=== PATIENT | male | born 1985 | race Two or more races ===

== ENCOUNTER 2018-04-26 06:06 | Emergency (ER) | payer SELFPAY ==
[2018-04-26] MEDS ORDERED: HYDROmorphONE/DILAUDID 2 MG/ML INJ IVP ONE ×2 (06:17→07:00)
[2018-04-26] MEDS ORDERED: NS 1,000 ML IV ONE ×2 (06:17→07:02)
[2018-04-26] MEDS ORDERED: ONDANSETRON 4 MG/2 ML VIAL IVP ONE (06:17)
--- NOTE | 2018-04-26 06:20 | EDPHY ---
H & P Stated Complaint: abd pain Source: Patient - Personal History Current Tetanus Diphtheria and Acellular Pertussis (TDAP): Unsure - Medical/Surgical History Hx Asthma: No Hx Chronic Respiratory Disease: No Hx Diabetes: No Hx Cardiac Disease: No Hx Renal Disease: No Hx Cirrhosis: No Hx Alcoholism: No Hx HIV/AIDS: No Hx Splenectomy or Spleen Trauma: No - Social History Smoking Status: Never smoked Time Seen by Provider: 04/26/18 06:17 HPI/ROS: HPI CHIEF COMPLAINT: Abdominal pain HISTORY OF PRESENT ILLNESS: 32-year-old male, otherwise healthy denies any significant medical history, presents emergency room with abdominal pain. Patient states approximately 15 min ago this woke him from sleep this describes sharp and dull pain around his periumbilical region. He denies any flank pain or back pain. Denies testicular pain, denies urinary symptoms. No vomiting did have nausea. No diarrhea. Patient states that he ate pasta last night. No fever. Has not been sick recently Current level pain 8/[address] He drove immediately here from his residence. He states the pain started 15-20 minutes ago. Sudden onset woke him from sleep. Of note upon arrival to the emergency room is noted he is hyperventilating, and appears very anxious. Past Medical History: Denies medical history Past Surgical History: Denies any surgical history Social History: Denies drugs alcohol tobacco. 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 Family History: Denies significant family history ROS REVIEW OF SYSTEMS: 10 Systems were reviewed and negative with the exception of the elements mentioned in the history of present illness. Exam Constitutional anxious triage nursing summary reviewed, vital signs reviewed, awake/alert. Hyperventilating. Eyes normal conjunctivae and sclera, EOMI, PERRLA. HENT normal inspection, atraumatic, moist mucus membranes, no epistaxis, neck supple/ no meningismus, no raccoon eyes. Respiratory hyperventilating clear to auscultation bilaterally, normal breath sounds, no respiratory distress, no wheezing. Cardiovascular rate normal, regular rhythm, no murmur, no edema, distal pulses normal. Gastrointestinal mild tender palpation periumbilical, no peritoneal signs, no rebound, no guarding, normal bowel sounds, no distension, no pulsatile mass. Genitourinary no CVA tenderness. Musculoskeletal no midline vertebral tenderness, full range of motion, no calf swelling, no tenderness of extremities, no meningismus, good pulses, neurovascularly intact. Skin pink, warm, & dry, no rash, skin atraumatic. Neurologic awake, alert and oriented x 3, AAOx3, moves all 4 extremities equally, motor intact, sensory intact, CN II-XII intact, normal cerebellar, normal vision, normal speech. Psychiatric normal mood/affect. Heme/Lymph/Immune no lymphadenopathy. Differential diagnosis includes but is not limited to and in no particular order : Bowel obstruction, appendicitis, gallbladder disease, diverticulitis, colitis , enteritis, perforated viscus, gastritis, GERD, esophagitis, urinary tract infection, pyelonephritis, kidney stones Medical Decision Making: Plan for this patient IV establishment IV fluid bolus , 0.5 mg IV Dilaudid for pain control 4 mg IV Zofran for nausea, basic labs, urinalysis, CT scan abdomen pelvis with IV contrast rule out for acute appendicitis versus kidney stone. Re-evaluation: 0637: Patient is hyperventilating. Tachypneic in the 30s. States his hands and fingers are tingling. 1 mg IV Ativan ordered. 0700: Patient is still writhing in pain. Patient still hyperventilating and having significant abdominal pain on exam. He is back from CT scan. His vital signs are stable however tachypnea due to anxiety and hyperventilating. Patient complaining of severe periumbilical abdominal pain. CT scan reviewed by myself still waiting on the radiologist call this appears to have right-sided hydronephrosis, and distal right-sided kidney stone. I have ordered the patient a mg of Dilaudid Additionally 15 mg IV Toradol his creatinine is normal. He is getting IV fluids. 0702: CT scan abdomen pelvis with IV contrast for acute severe abdominal pain shows right-sided hydroureter, right-sided distal ureteral stone 5 x 5 x 3. It is noted upon arrival the patient had elevated lactic close to 5. The patient is not septic lactic acid is elevated due to dehydration, anxiety, kidney stone. No evidence of end-organ damage. He is not septic no fever, he is not hypotensive. Plan for this patient 2 L of fluid, Pain control Once his pain is controlled I believe he can be safely discharged from the emergency room to follow up with Urology. (Sumeet Asif) Constitutional: Initial Vital Signs Heart Rate 105 H 12/16/18 06:09 Respiratory Rate 28 H 04/26/18 06:09 Blood Pressure 149/88 H 04/26/18 06:09 O2 Sat (%) 99 04/26/18 06:09 O2 Delivery Mode Nasal Cannula O2 (L/minute) 1 Allergies/Adverse Reactions: No Known Allergies Allergy (Unverified 04/26/18 06:08) Home Medications: Medication Instructions Recorded Hydrocodone/APAP 5/325 [[place] 1 - 2 tab PO Q4H PRN #10 tab 04/26/18 5/325] Ondansetron HCl [Zofran] 4 mg PO Q4-6PRN PRN #10 tablet 04/26/18 Tamsulosin HCl [Flomax] 0.4 mg PO DAILY #10 cap 04/26/18 Medical Decision Making ED Course/Re-evaluation: I assumed care of the patient at 0700. I re-evaluated the patient at 10:00 a.m.. He has received several L of fluid. He is currently feeling much better. Curiously his initial lactic acid was quite high however his come down. The patient is not sick nor does he have septic physiology. There is no evidence of a infection noted on his urinalysis. The patient will be discharged home with customary aftercare instructions and return precautions. He is given follow up with Urology per Dr. Asif's instructions. (Danish Burton) - Data Points Laboratory Results: Laboratory Results 04/26/18 05:42 04/26/18 05:42 04/26/18 04/26/18 04/26/18 09:39 08:08 06:30 WBC RBC Hgb POC Hgb 16.0 gm/dL gm/dL (13.7-17.5) Hct POC Hct 47 % % (40-51) MCV MCH MCHC RDW Plt Count MPV Neut % (Auto) Lymph % (Auto) [place] % (Auto) Eos % (Auto) Baso % (Auto) Nucleat RBC Rel Count Absolute Neuts (auto) Absolute Lymphs (auto) Absolute Monos (auto) Absolute Eos (auto) Absolute Basos (auto) Absolute Nucleated RBC Immature Gran % Seg Neutrophils % Band Neutrophils % Lymphocytes % Monocytes % Eosinophils % Basophils % Metamyelocytes % Myelocytes % Promyelocytes % Blast Cells % Immature Gran # Absolute Seg Neuts Absolute Band Neuts Absolute Lymphocytes Absolute Monocytes Absolute Eosinophils Absolute Basophils Absolute Metamyelocyte Absolute Myelocytes Absolute Promyelocytes Absolute Plasma Cells RBC/WBC/PLT Morphology Atypical Lymphocytes Absolute Blast Cells Plasma Cells % Platelet Estimate Smear Review By VBG Lactic Acid 2.3 mmol/L H mmol/L (0.7-2.1) POC Sodium 144 mEq/L mEq/L (135-145) Sodium POC Potassium 3.3 mEq/L mEq/L (3.3-5.0) Potassium POC Chloride 102 mEq/L mEq/L (97-110) Chloride Carbon Dioxide Anion Gap POC BUN 16 mg/dL mg/dL (7-23) BUN Creatinine POC Creatinine 0.9 mg/dL mg/dL (0.7-1.3) Estimated GFR Glucose POC Glucose 108 mg/dL H mg/dL (70-100) Calcium Total Bilirubin Conjugated Bilirubin Unconjugated Bilirubin AST ALT Alkaline Phosphatase Total Protein Albumin Lipase Urine Color YELLOW Urine Appearance HAZY Urine pH 5.0 (5.0-7.5) Ur Specific [place] > 1.035 H (1.002-1.030) Urine Protein NEGATIVE (NEGATIVE) Urine Ketones TRACE H (NEGATIVE) Urine Blood 3+ H (NEGATIVE) Urine Nitrate NEGATIVE (NEGATIVE) Urine Bilirubin NEGATIVE (NEGATIVE) Urine Urobilinogen NEGATIVE EU EU (0.2-1.0) Ur Leukocyte Esterase NEGATIVE (NEGATIVE) Urine RBC 50-182 /hpf H /hpf (0-3) Urine WBC 1-3 /hpf /hpf (0-3) Ur Epithelial Cells NONE SEEN /lpf /lpf (NONE-1+) Urine Mucus 1+ /lpf /lpf (NONE-1+) Urine Glucose NEGATIVE (NEGATIVE) 04/26/18 04/26/18 04/26/18 05:42 05:42 05:42 WBC 14.09 10^3/uL H 10^3/uL (3.80-9.50) RBC 5.32 10^6/uL 10^6/uL (4.40-6.38) Hgb 16.1 g/dL g/dL (13.7-17.5) POC Hgb Hct 45.3 % % (40.0-51.0) POC Hct MCV 85.2 fL fL (81.5-99.8) MCH 30.3 pg pg (27.9-34.1) MCHC 35.5 g/dL g/dL (32.4-36.7) RDW 12.7 % % (11.5-15.2) Plt Count 322 10^3/uL 10^3/uL (150-400) MPV 9.3 fL fL (8.7-11.7) Neut % (Auto) Not Reported Lymph % (Auto) Not Reported [place] % (Auto) Not Reported Eos % (Auto) Not Reported Baso % (Auto) Not Reported Nucleat RBC Rel Count Not Reported Absolute Neuts (auto) Not Reported Absolute Lymphs (auto) Not Reported Absolute Monos (auto) Not Reported Absolute Eos (auto) Not Reported Absolute Basos (auto) Not Reported Absolute Nucleated RBC Not Reported Immature Gran % Not Reported Seg Neutrophils % 29.0 % % Band Neutrophils % 0.0 % % Lymphocytes % 64.0 % % Monocytes % 5.0 % % Eosinophils % 2.0 % % Basophils % 0.0 % % Metamyelocytes % 0.0 % % Myelocytes % 0.0 % % Promyelocytes % 0.0 % % Blast Cells % 0.0 % % Immature Gran # Not Reported Absolute Seg Neuts 0.00 10^3/uL L 10^3/uL (1.70-6.50) Absolute Band Neuts 0.00 10^3/uL 10^3/uL (0.00-0.70) Absolute Lymphocytes 0.00 10^3/uL L 10^3/uL (1.00-3.00) Absolute Monocytes 0.00 10^3/uL L 10^3/uL (0.30-0.80) Absolute Eosinophils 0.00 10^3/uL L 10^3/uL (0.03-0.40) Absolute Basophils 0.00 10^3/uL L 10^3/uL (0.02-0.10) Absolute Metamyelocyte 0.00 10^3/mL 10^3/mL (0.00-0.00) Absolute Myelocytes 0.00 10^3/mL 10^3/mL (0.00-0.00) Absolute Promyelocytes 0.00 10^3/uL 10^3/uL (0.00-0.00) Absolute Plasma Cells 0.00 10^3/uL 10^3/uL (0.00-0.00) RBC/WBC/PLT Morphology NORMAL (NORMAL) Atypical Lymphocytes 1+ H Absolute Blast Cells 0.00 10^3/uL 10^3/uL (0.00-0.00) Plasma Cells % 0.0 % % Platelet Estimate ADEQUATE (ADEQ) Smear Review By Darling MCGINNIS MD VBG Lactic Acid 5.3 mmol/L H mmol/L (0.7-2.1) POC Sodium Sodium 141 mEq/L mEq/L (135-145) POC Potassium Potassium 3.8 mEq/L mEq/L (3.5-5.2) POC Chloride Chloride 106 mEq/L mEq/L (97-110) Carbon Dioxide 19 mEq/l L mEq/l (22-31) Anion Gap 16 mEq/L H mEq/L (6-14) POC BUN BUN 17 mg/dL mg/dL (7-23) Creatinine 0.9 mg/dL mg/dL (0.7-1.3) POC Creatinine Estimated GFR > 60 Glucose 106 mg/dL H mg/dL (70-100) POC Glucose Calcium 9.6 mg/dL mg/dL (8.5-10.4) Total Bilirubin 1.0 mg/dL mg/dL (0.1-1.4) Conjugated Bilirubin 0.2 mg/dL mg/dL (0.0-0.5) Unconjugated Bilirubin 0.8 mg/dL mg/dL (0.0-1.1) AST 38 IU/L IU/L (17-59) ALT 82 IU/L H IU/L (21-72) Alkaline Phosphatase 87 IU/L IU/L (38-126) Total Protein 7.4 g/dL g/dL (6.3-8.2) Albumin 4.5 g/dL g/dL (3.5-5.0) Lipase 123 IU/L IU/L (23-300) Urine Color Urine Appearance Urine pH Ur Specific [place] Urine Protein Urine Ketones Urine Blood Urine Nitrate Urine Bilirubin Urine Urobilinogen Ur Leukocyte Esterase Urine RBC Urine WBC Ur Epithelial Cells Urine Mucus Urine Glucose Medications Given: Discontinued Medications Hydromorphone HCl (Dilaudid) 0.5 mg IVP EDNOW ONE Stop: 04/26/18 06:18 Last Admin: 04/26/18 06:29 Dose: 0.5 mg Hydromorphone HCl (Dilaudid) 1 mg IVP EDNOW ONE Stop: 04/26/18 07:01 Last Admin: 04/26/18 07:01 Dose: 1 mg Sodium Chloride (Ns) 1,000 mls @ 0 mls/hr IV EDNOW ONE; Wide Open PRN Reason: Protocol Stop: 04/26/18 06:18 Last Admin: 04/26/18 06:26 Dose: 1,000 mls Sodium Chloride (Ns) 1,000 mls @ 0 mls/hr IV ONCE ONE PRN Reason: Wide Open Stop: 04/26/18 07:03 Last Admin: 04/26/18 07:04 Dose: 1,000 mls Ketorolac Tromethamine (Toradol) 15 mg IVP EDNOW ONE Stop: 04/26/18 07:01 Last Admin: 04/26/18 07:02 Dose: 15 mg Lorazepam (Ativan Injection) 1 mg IVP EDNOW ONE Stop: 04/26/18 06:38 Last Admin: 04/26/18 06:39 Dose: 1 mg Ondansetron HCl (Zofran) 4 mg IVP EDNOW ONE Stop: 04/26/18 06:18 Last Admin: 04/26/18 06:30 Dose: 4 mg Point of Care Test Results: Chemistry 04/26/18 06:30 POC Sodium 144 mEq/L mEq/L (135-145) POC Potassium 3.3 mEq/L mEq/L (3.3-5.0) POC Chloride 102 mEq/L mEq/L (97-110) POC BUN 16 mg/dL mg/dL (7-23) POC Creatinine 0.9 mg/dL mg/dL (0.7-1.3) POC Glucose 108 mg/dL H mg/dL (70-100) ISTAT H&H 04/26/18 06:30 POC Hgb 16.0 gm/dL gm/dL (13.7-17.5) POC Hct 47 % % (40-51) Departure - Departure Disposition: Home, Routine, Self-Care Clinical Impression: Kidney stone on right side Abdominal pain Qualifiers: Abdominal location: unspecified location Qualified Code(s): R10.9 - Unspecified abdominal pain Condition: Good Instructions: Kidney Stones (ED), Renal Colic (ED), Acute Abdominal Pain (ED) Additional Instructions: 1. Return to the emergency room if you have worsening abdominal pain, vomiting, not doing well 2. You have a kidney stone seen on her CT scan it is on the right side is almost in your bladder 3. Please drink lots of fluids 4. Flomax as prescribed 5. Follow up with Urology 6. Strain her urine 7. Return if severe pain vomiting or not doing well. Referrals: NONE *PRIMARY CARE P,. [Primary Care Provider] - As per Instructions Crescencio Martinez MD [Medical Doctor] - As per Instructions Prescriptions: Hydrocodone/APAP 5/325 [[place] 5/325] 1 - 2 tab PO Q4H PRN #10 tab PRN Reason: Pain, Moderate Ondansetron HCl [Zofran] 4 mg PO Q4-6PRN PRN #10 tablet PRN Reason: Nausea/Vomiting, Use 1st Tamsulosin HCl [Flomax] 0.4 mg PO DAILY #10 cap
[2018-04-26] MEDS ORDERED: IOPAMIDOL (ISOVUE-300) 100 ML BTL ONE (06:35)
[2018-04-26] MEDS ORDERED: LORazepam 2 MG/ML INJ IVP ONE (06:37)
[2018-04-26] MEDS ORDERED: LORazepam 2 MG/ML INJ ONE (06:38)
[2018-04-26 06:42] LABS: PLATELET COUNT 322 10^3/uL (150-400)
[2018-04-26] MEDS ORDERED: HYDROmorphONE/DILAUDID 1 MG/ML INJ ONE (06:59)
[2018-04-26] MEDS ORDERED: KETOROLAC 15 MG/1 ML SDV IVP ONE (07:00)
[2018-04-26 10:16] VITALS: BP 129/69
== END 2018-04-26 10:16 | disposition home or self-care (01) ==
DX: N20.0 Calculus of kidney (principal); E86.9 Volume depletion, unspecified
CPT/HCPCS: 82435-PO; 82565-PO; 82947-PO; 84132-PO; 84295-PO; 84520-PO; 85014-PO; 96374; J1170; J1885; J2060; J2405; Q9967